=== PATIENT | female | born 1975 | race Caucasian/White ===

== ENCOUNTER → 2020-06-11 | Day surgery (SDC) | payer OTHER ==
[~2020-06-11] MED LIST: ASPIR-LOW81 MG PO; ATORVASTATIN CA40 MG PO; CELEXA10 MG PO; COLACE 100MG C100 MG PO; FOLIC ACID1 MG PO; GABAPENTIN300 MG PO; GLUCOPHAGE500 MG PO; GLYBURIDE2.5 MG PO; HYDROCHLOROTHIA25 MG PO; IBUPROFEN600 MG PO; KLOR-CON 1010 MEQ PO; KLOR-CON M1010 MEQ PO; LASIX40 MG PO; LIORESAL TAB 1010 MG PO; LIPITOR TAB 2020 MG PO; METOPROLOL TART25 MG PO; MIRALAX17 GM PO; NAPROXEN250 MG PO; NORCO 5-325 TA1 EACH PO; NORVASC 5 MG TAB5 MG PO; PLAVIX75 MG PO; PRINIVIL10 MG PO; VITAMIN B-121000 MC1 PO; VITAMIN B-121000 MCG PO; VITAMIN D350000 UNIT PO; ZOFRAN ODT4 MG PO
== END | disposition home or self-care (01) ==
LOC: OR 06-10 19:45
DX: K60.2 Anal fissure, unspecified (principal); K64.0 First degree hemorrhoids; K64.4 Residual hemorrhoidal skin tags; K29.50 Unspecified chronic gastritis without bleeding; K55.1 Chronic vascular disorders of intestine; K26.1 Acute duodenal ulcer with perforation; E11.9 Type 2 diabetes mellitus without complications; E66.9 Obesity, unspecified; E78.00 Pure hypercholesterolemia, unspecified; G47.30 Sleep apnea, unspecified; J45.909 Unspecified asthma, uncomplicated; I05.9 Rheumatic mitral valve disease, unspecified; I10 Essential (primary) hypertension; Z87.891 Personal history of nicotine dependence; Z79.899 Other long term (current) drug therapy; Z79.84 Long term (current) use of oral hypoglycemic drugs; Z20.822 Contact with and (suspected) exposure to COVID-19; Z96.659 Presence of unspecified artificial knee joint; Z90.710 Acquired absence of both cervix and uterus; Z95.828 Presence of other vascular implants and grafts; Z98.51 Tubal ligation status; Z98.890 Other specified postprocedural states; Z88.8 Allergy status to other drugs, medicaments and biological substances
CPT/HCPCS: 82962; J2250; J2405; J2704; J3010; J7040

== ENCOUNTER → 2020-07-31 | Outpatient (CLI) | payer OTHER | LOC: NM 09:52 | DX: R11.0 Nausea (principal) | CPT/HCPCS: 78264; A9541 ==

== ENCOUNTER → 2021-05-13 | Outpatient (CLI) | payer OTHER | LOC: KOH-I 08:00 | DX: R14.0 Abdominal distension (gaseous) (principal) | CPT/HCPCS: 74176 ==